=== PATIENT | male | born 1975 | race Caucasian/White ===

== ENCOUNTER 2021-08-20 08:21 | Emergency (ER) | payer OTHER, SELFPAY ==
[2021-08-20 08:40] VITALS: BP 134/98; PULSE 90; RESP 16; TEMP 36.9; O2SAT 93; BMI 25.7
[2021-08-20 08:49] VITALS: BP 134/98; PULSE 86; RESP 22; O2SAT 94
--- NOTE | 2021-08-20 08:49 | XR_ITS ---
WS: [id number] Exam: XR chest 1V portable [id number] Date/Time of Exam: 08/20/2021 8:49 AM Reason For Exam: dyspnea/cough Comparison 08/03/2021. Findings: The lungs are clear and fully expanded. Costophrenic angles are sharp. No infiltrates. Bronchovascula r relief appears normal. Cardiac silhouette is unremarkable. Bony elements are intact. XR/XR chest 1V portable [id number] IMPRESSION: Unremarkable chest radiograph.
--- NOTE | 2021-08-20 08:49 | ECG_ITS ---
[facility] Test Date: 2021-08-20 Pat Name: Rajeev Ramirez Department: Room: Gender: Male Masticator: : 1975 Requested By: Heladio Dallas Order Number: [id number] Rex MD: Octavio Layton M.D. Measurements Intervals [place] Rate: 78 P: 37 AR: 165 QRS: 35 QRSD: 89 T: 32 QT: 345 QTc: 394 Interpretive Statements SINUS RHYTHM INTERPRETATION BASED ON A DEFAULT AGE OF 40 YEARS No previous ECG available for comparison Electronically Signed On 08-21-2021 7:38:20 CORRECTIONAL OFFICER CAPTAIN by Octavio Layton M.D. [email or web address] [email or web address] Technical [id number]
--- NOTE | 2021-08-20 09:06 | W.ED.CHESTPA ---
HPI - Chest Pain General: Chief Complaint: Chest Pain Stated Complaint: JUST NOT FEELING WELL ACHEY ALL OVER Time Seen by Provider: 08/20/21 08:30 History of Present Illness: HPI narrative: 45-year-old male presents emergency room complaining of generally not feeling well headache flulike symptoms fatigue x1 month was diagnosed as having pneumonia a month ago completed antibiotic therapy but doesn't feel like his symptoms have resolved. He denies any high-grade fevers. Denies any anosmia or diarrhea. He is not currently on any medications denies any chest pain hematochezia melena hematemesis coffee-ground emesis vomiting or diarrhea. No history of diabetes or heart disease. No history of previous stroke. No history of chronic respiratory illness per the patient. MD complaint: chest discomfort Onset (ago): week(s) Timing of current episode: episodic Prior episodes: Yes Onset: during rest Pain radiation: none Severity: mild Quality: heaviness Relieving factors: nothing Exacerbating factors: nothing Associated symptoms: Reports dyspnea; Deny abdominal pain, diaphoresis, fever(s), leg edema, nausea, palpitations, sense of impending doom, syncope or vomiting Treatment prior to arrival: none Review of Systems Const: Denies: fever(s) or diaphoresis ENMT: Denies: throat pain, ear or mastoid pain, nasal discharge or nasal congestion Card: Denies: palpitations or syncope Resp: Reports: dyspnea GI: Denies: abdominal pain, nausea or vomiting : Denies: flank pain, dysuria, urinary frequency or urinary urgency Skin/Breast: Denies: rash or pruritus Physical Exam Const: COMMON NORMALS: no acute distress GENERAL APPEARANCE: cooperative and comfortable ORIENTATION/CONSCIOUSNESS: Yes awake, Yes oriented to person, Yes oriented to place and Yes oriented to time HENMT: COMMON NORMALS: normocephalic, atraumatic and hearing grossly normal bilaterally HEAD & SCALP: normocephalic and atraumatic Neck/C-Spine: COMMON NORMALS: no JVD Resp: COMMON NORMALS: normal respiratory effort, No retractions and No use of accessory muscles AUSCULTATION: wheezes Cardio: COMMON NORMALS: no JVD, regular rate, regular rhythm and No murmurs present (Cardio) RATE: regular rate RHYTHM: regular rhythm GI: COMMON NORMALS: Soft to palpation and No hepatosplenomegaly present AUSCULTATION: Yes normoactive bowel sounds PALPATION: Yes Soft to palpation, No Tenderness to palpation present (GI), No Guarding due to palpation present (GI) and Yes No hepatosplenomegaly present Extremity: COMMON NORMALS: normal to inspection, capillary refill normal, no clubbing, cyanosis or edema, no calf tenderness and no pedal edema Neuro: SENSORIUM/ORIENTATION: Yes oriented to person, Yes oriented to place and Yes oriented to time Skin: COMMON NORMALS: no rashes or lesions noted GENERAL SKIN EXAM: no rashes or lesions noted Course Vital Signs: Vital signs: Vital Signs Temperature 98.4 F 08/20/21 08:40 Pulse Rate 84 08/20/21 12:57 Respiratory Rate 21 H 08/20/21 12:57 Blood Pressure 134/98 08/20/21 12:57 Pulse Oximetry 97 08/20/21 12:57 MDM - Chest Pain MDM Narrative: Medical decision making narrative: Labs imaging and EKG reviewed as on the chart. Patient does not have any acute ST changes and he has no significant troponin change. Jessica go ahead and discharge him home we will set him up for an outpatient Lexiscan sestamibi stress test. Additionally start him on Symbicort albuterol to use as needed and have him take a baby aspirin daily return if he has recurrence. Lab Data: Labs: Lab Results 08/20/21 08/20/21 08/20/21 09:19 09:36 09:36 WBC 15.5 10^3/uL H 10 ^3/uL (4.0-10.0) RBC 5.70 10^6/uL H 10 ^6/uL (4.1-5.3) Hgb 16.8 g/dL H g/dL (11.7-16.6) Hct 49.8 % % (42.0-52.0) MCV 87.4 fl fl (80-94) MCH 29.5 pg pg (28.0-34.0) MCHC 33.7 g/dL g/dL (30.0-36.0) RDW 14.1 % % (12.1-15.1) Plt Count 308 10^3/cmm 10^3 /cmm (130-400) MPV 10.9 fL H fL (7.4-10.4) Neut % (Auto) 76.4 % % Lymph % (Auto) 17.2 % % [place] % (Auto) 5.0 % % Eos % (Auto) 0.6 % % Baso % (Auto) 0.5 % % Neut # (Auto) 11.83 10^3/uL H 1 0^3/uL (1.8-7.7) Lymph # (Auto) 2.7 10^3/uL 10^3/ uL (0.8-4.8) [place] # (Auto) 0.8 10^3/uL 10^3/ uL (0.2-0.9) Eos # (Auto) 0.1 10^3/uL 10^3/ uL (0.0-0.8) Baso # (Auto) 0.1 10^3/uL 10^3/ uL (0.0-0.1) Nucleated RBC % (a uto) 0 % % Nucleated RBCs # 0.0 /100WBC /100W BC Specimen Type Arterial Sample Site Radial, right ABG pH 7.48 H (7.35-7.45) ABG pCO2 32.3 mmHg L mmHg (35-45) ABG pO2 82.2 mmHg mmHg (80.0-100.0) ABG HCO3 24.0 mmol/L mmol/ L (22-26) ABG O2 Saturation 97.9 ABG Base Excess 1.3 mmol/L mmol/L (-2.0-2.0) David Test Pos A-a O2 Gradient 3.2 mmHg L mmHg (5-10) Hematocrit 51.7 % % (42-52) Hgb O2 Saturation 88.9 % L % (95-100) Carboxyhemoglobin 8.9 %THgb %THgb (0.4-20.1) Methemoglobin 0.3 % L % (0.4-1.5) Total Hemoglobin 16.9 g/dL g/dL (14-18) Sodium 139.0 mmol/L mmol /L 138 mmol/L mmol/L (131-143) (136-145) Potassium 3.8 mmol/L mmol/L 4.1 mmol/L mmol/L (3.5-5.0) (3.5-5.1) Glucose 88.0 mg/dL mg/dL 83 mg/dL mg/dL (70-115) (65-115) Ionized Calcium 1.2 mmol/L mmol/L (1.1-1.4) O2 Delivery Device Room air FiO2 21.0 % % Chemists ID [place]ro Chloride 104 mmol/L mmol/L (98-107) Carbon Dioxide 24 mmol/L mmol/L (22-29) Anion Gap 14.1 (5-19) BUN 10 mg/dL mg/dL (6-20) Creatinine 0.9 mg/dL mg/dL (0.7-1.2) GFR Calculation 90.8 mL/min mL/mi n (90-130) Calculated Osmolal ity 284 mOsm/kg L mOs m/kg (285-295) Calcium 8.9 mg/dL mg/dL (8.5-10.5) Total Bilirubin 0.4 mg/dL mg/dL (0.15-1.2) AST 15 U/L U/L (0-40) ALT 21 U/L U/L (0-41) Alkaline Phosphata se 124 IU/L IU/L (40-130) Creatine Kinase 65 U/L U/L (39-308) Troponin T Baselin e Troponin T 120 Min [place] Delta Troponin T Total Protein 6.9 g/dL g/dL (6.6-8.7) Albumin 4.3 g/dL g/dL (3.5-5.2) Globulin 2.6 g/dL g/dL (1.3-4.6) Urine Color Urine Appearance Urine pH Ur Specific Gravit y Urine Protein Urine Glucose (UA) Urine Ketones Urine Blood Urine Nitrate Urine Bilirubin Urine Urobilinogen Ur Leukocyte Perla ase 08/20/21 08/20/21 08/20/21 09:36 11:30 12:10 WBC RBC Hgb Hct MCV MCH MCHC RDW Plt Count MPV Neut % (Auto) Lymph % (Auto) [place] % (Auto) Eos % (Auto) Baso % (Auto) Neut # (Auto) Lymph # (Auto) [place] # (Auto) Eos # (Auto) Baso # (Auto) Nucleated RBC % (a uto) Nucleated RBCs # Specimen Type Sample Site ABG pH ABG pCO2 ABG pO2 ABG HCO3 ABG O2 Saturation ABG Base Excess David Test A-a O2 Gradient Hematocrit Hgb O2 Saturation Carboxyhemoglobin Methemoglobin Total Hemoglobin Sodium Potassium Glucose Ionized Calcium O2 Delivery Device FiO2 Chemists ID Chloride Carbon Dioxide Anion Gap BUN Creatinine GFR Calculation Calculated Osmolal ity Calcium Total Bilirubin AST ALT Alkaline Phosphata se Creatine Kinase Troponin T Baselin e 8 ng/L ng/L (0-15) Troponin T 120 Min [place] 6.00 ng/L ng/L (0-15) Delta Troponin T -2.00 ABS# L ABS# (0-10) Total Protein Albumin Globulin Urine Color Yellow (Yellow) Urine Appearance Clear (CLEAR) Urine pH 5 (5-7) Ur Specific Gravit y 1.025 (1.005-1.030) Urine Protein Neg (Negative) Urine Glucose (UA) Norm (Normal) Urine Ketones Negative (Negative) Urine Blood Neg (Negative) Urine Nitrate Negative (Negative) Urine Bilirubin Neg (Negative) Urine Urobilinogen Norm mg/dL mg/dL (Negative) Ur Leukocyte Perla ase Negative (Negative) Discharge Plan Discharge Patient Disposition: Home Clinical Impression: Atypical chest pain, COPD (chronic obstructive pulmonary disease) Condition: Stable Prescriptions: New aspirin 81 mg tablet,delayed release (DR/EC) 81 mg PO DAILY Qty: 30 RF: 3 Symbicort 80-4.5 mcg/actuation HFA aerosol inhaler 2 inh inhalation BID Qty: 10.2 RF: 1 albuterol sulfate 90 mcg/actuation HFA aerosol inhaler 2 inh INHALATION Q4H PRN (Reason: shortness of breath or wheezing) Qty: 18 RF: 0 Discharge Orders: Discharge ED (Routine); Ordered 08/20/21 Ordered By: Heladio Metz Referrals: Mali Castaneda DO [Primary Care Provider] - Discharge Diet: Usual diet Discharge Activity: Limit activity as instructed Patient Instructions: Opioid Safety Activity Restrictions/Additional Instructions: Case management will schedule stress test for you. Coding Level of Care Code ED Drapery Hand for [place] Fwd Exam Comprehensive
[2021-08-20 09:31] LABS: ABG PCO2 32.3 mmHg (35-45); ABG PH Result 7.48 (7.35-7.45); Alveolar-Arterial Oxygen Gradi 3.2 mmHg (5-10); Arterial Blood Gas Hematocrit 51.7 % (42-52); Base Excess ABG 1.3 mmol/L (-2.0-2.0); Blood Gas Allen Test Pos; Blood Gas Operator Identificat MONRO; Blood Gas Sample Site Radial, right; Blood Gas Sample Type Arterial; Carboxyhemoglobin 8.9 %THgb (0.4-20.1); HGB O2 Sat 88.9 % (95-100); Ionized Calcium Level - ABG 1.2 mmol/L (1.1-1.4); Methemoglobin 0.3 % (0.4-1.5); Oxygen Device ROOM AIR; Oxygen Saturation ABG 97.9; PO2 ABG 82.2 mmHg (80.0-100.0); Potassium Level - ABG 3.8 mmol/L (3.5-5.0); Total Hemoglobin 16.9 g/dL (14-18)
[2021-08-20 09:43] LABS: Basophils # 0.1 10^3/uL (0.0-0.1); Basophils % 0.5 %; Eosinophils # 0.1 10^3/uL (0.0-0.8); Eosinophils % 0.6 %; Hematocrit 49.8 % (42.0-52.0); Hemoglobin 16.8 g/dL (11.7-16.6); Lymphocytes # 2.7 10^3/uL (0.8-4.8); Lymphocytes % 17.2 %; Mean Corpuscular HGB Conc 33.7 g/dL (30.0-36.0); Mean Corpuscular Hemoglobin 29.5 pg (28.0-34.0); Mean Corpuscular Volume 87.4 fl (80-94); Mean Platelet Volume 10.9 fL (7.4-10.4); Monocytes # 0.8 10^3/uL (0.2-0.9); Neutrophils # 11.83 10^3/uL (1.8-7.7); Neutrophils % 76.4 %; Nucleated Red Blood Cells % 0 %; Platelet Count 308 10^3/cmm (130-400); Red Cell Distribution Width 14.1 % (12.1-15.1); White Blood Count 15.5 10^3/uL (4.0-10.0)
[2021-08-20 10:06] LABS: Alanine Aminotransferase 21 U/L (0-41); Albumin Level 4.3 g/dL (3.5-5.2); Alkaline Phosphatase 124 IU/L (40-130); Anion Gap 14.1 (5-19); Aspartate Amino Transferase 15 U/L (0-40); Blood Urea Nitrogen 10 mg/dL (6-20); Calcium 8.9 mg/dL (8.5-10.5); Carbon Dioxide 24 mmol/L (22-29); Chloride 104 mmol/L (98-107); Creatine Phosphokinase 65 U/L (39-308); Globulin 2.6 g/dL (1.3-4.6); Glomerular Filtration Rate 90.8 mL/min (90-130); Glucose 83 mg/dL (65-115); Osmolality Calculated 284 mOsm/kg (285-295); Potassium 4.1 mmol/L (3.5-5.1); Sodium 138 mmol/L (136-145); Total Bilirubin 0.4 mg/dL (0.15-1.2); Total Protein 6.9 g/dL (6.6-8.7)
[2021-08-20 10:13] LABS: Troponin(5th) Baseline 8 ng/L (0-15)
[2021-08-20 12:57] VITALS: BP 134/98; PULSE 84; RESP 21; O2SAT 97
[2021-08-20 13:25] LABS: Add Urine Microscopic? NO; Charge for UA Resulting for Rev
[2021-08-20 13:44] LABS: Urine Appearance Clear (CLEAR); Urine Color Yellow (Yellow)
[2021-08-20 13:45] LABS: Bilirubin Urine Neg (Negative); Blood Urine Neg (Negative); Glucose Urine UA Norm (Normal); Ketones Urine Negative (Negative); Leukocyte Esterase Urine Negative (Negative); Nitrate Urine Negative (Negative); Protein Urine Neg (Negative); Specific Gravity, Urine 1.025 (1.005-1.030); Urobilinogen Urine Norm (Negative); pH Urine 5 (5-7)
--- NOTE | 2021-08-26 07:04 | DCPLANNER ---
Addendum entered by Lindsey Avila 02/04/22 19:39: Patient has an outpatient stress test scheduled for Tuesday, February 08, 2022 at 11:30. Centralized scheduling will call patient with appointment information. Original Note: late entry - welfare case worker had message to schedule an outpatient stress test for patient. electronics engineering manager faxed signed order to centralized scheduling, who will call patient with appointment information.
== END 2021-08-20 12:58 | disposition home or self-care (01) ==
PROVIDERS: Emergency Provider Family Medicine; PCP Family Medicine
DX: R07.89 Other chest pain (principal); J44.9 Chronic obstructive pulmonary disease, unspecified; Z79.82 Long term (current) use of aspirin
CPT/HCPCS: 36600; 71045; 80051; 80053; 81003; 82330; 82550; 82805; 84484; 85025; 87040; 93005; 99283

== ENCOUNTER → 2022-04-04 12:05 | Outpatient (BNVA) | payer OTHER, SELFPAY | PROVIDERS: Visit Provider Family Medicine | DX: R11.2 Nausea with vomiting, unspecified (principal); K92.1 Melena; Z13.6 Encounter for screening for cardiovascular disorders; Z12.5 Encounter for screening for malignant neoplasm of prostate | CPT/HCPCS: 80053; 80061; 85025; G0103 ==

== ENCOUNTER 2022-06-17 09:56 | Outpatient (CLI) | payer OTHER, SELFPAY ==
--- NOTE | 2022-06-17 10:14 | FL_ITS ---
WS: [id number] FL upper GI w air* [id number] REASON FOR EXAM: HX OF HIATAL HERNIA FLUOROSCOPY TIME: 4min [id number] # OF SPOT FILMS: 133 FINDINGS: Patient was examined in the upright, prone RINALDI, supine, and LPO positions. Gastrointestinal tract was evaluated from the thoracic inlet to the ligament of Treitz. The thoracic esophagus is unremarkable. There is a large paraesophageal hernia. The remainder of the stomach demonstrates no significant abnormality. The pylorus duodenal bulb and duodenal sweep are unremarkable. FL/FL upper GI w air* [id number] IMPRESSION: Large paraesophageal hernia which fills most readily when the patient is supine or LPO.
== END 2022-06-17 09:57 | disposition home or self-care (01) ==
PROVIDERS: PCP Family Medicine; Visit Provider Surgery
DX: Z87.19 Personal history of other diseases of the digestive system (principal); K44.9 Diaphragmatic hernia without obstruction or gangrene
CPT/HCPCS: 74246

== ENCOUNTER 2022-06-24 07:29 | Day surgery (SDC) | payer OTHER, SELFPAY ==
[2022-06-22 14:11] VITALS: BMI 26.4
[2022-06-24 07:54] VITALS: BP 121/78; PULSE 72; RESP 18; TEMP 35.7; O2SAT 98
[2022-06-24] MEDS: sodium chloride 0.9% 1,000 ML 30 ML IV (08:05)
--- NOTE | 2022-06-24 09:02 | W.PM.OPSFHP ---
Same Day Surgery H&P Indication for Procedure/HPI DATE OF PROCEDURE: June 24, 2022 CHIEF COMPLAINT/INDICATIONFOR SURGICAL PROCEDURE: Blood in stool PREOP DIAGNOSIS: Nausea vomiting and bloody diarrhea PLANNED PROCEDURE: Operation Date: 06/24/22 09:00 Proposed Procedures p EGD(Not Applicable) - Brandon Guerra MD s Colonoscopy and egd [id number],K92.1,R19.4(Not Applicable) - Brandon Guerra MD 05/11/2022 This is a pleasant 46 years old gentleman referred to my practice with history of persistent nausea and change in bowel habits in the form of bloody diarrhea.? Patient had previous laparoscopic Selma fundoplication about 15 years ago at outside facility, he reports no GERD he still does have his gallbladder. Patient reports history of diarrhea, nonbloody in nature, has been going on for quite some time.? Patient denies history of recent travels, antibiotics, change in medications, questionable source of water, no history of sick contacts, no history of thyroid disorders. Patient is referred to my practice for further evaluation and potential management 06/24/2022 Patient comes today for diagnostic EGD and colonoscopy. An upper GI study was obtained and did show; Large paraesophageal hernia which fills most readily when the patient is supine or LPO. Patient reports to me today that he knew about his recurrence of the hernia and he had visited with his surgeon more than 10 years ago and was offered revision surgery. Likely this bit of information was not clear at the last visit. We will proceed with EGD and colonoscopy today. ROS All systems have been reviewed negative except as for the above or per problem list. Medications/Allergies* Allergies/Adverse Reactions Allergy/AdvReac Type Severity Reaction Status Date / Time Penicillins Allergy ADR-Vomitin Verified 06/24/22 09:03 g Current Medications: Generic Name Dose Route Start Last Admin Trade Name Freq PRN Reason Stop Dose Admin Sodium Chloride 1,000 mls @ 30 mls/hr 06/24/22 07:45 06/24/22 08:05 Sodium Chloride 0.9% IV 06/25/22 07:44 30 mls/hr .Q24H SIERRA Administration Pertinent History/Comorbid Conditions* Medical History (Updated 04/05/22 @ 06:57 by Liyah Hill DO) GERD (gastroesophageal reflux disease) Kidney stones Surgical History (Updated 04/04/22 @ 10:55 by Liyah Hill DO) History of lithotripsy History of Selma fundoplication Done at [facility] in [facility] Family History (Updated 04/04/22 @ 10:46 by Faye Pagan LPN) Hyperlipidemia Chronic kidney disease (CKD) Lung disease Cancer Hypertension Denies family history of Diabetes CAD (coronary artery disease) Clotting disorder Dementia Psychiatric illness Suicide Anesthesia complication Bleeding disorder Family history of premature coronary artery disease Stroke Social History Smoking and tobacco status: current every day smoker Pertinent Exam Findings alert, oriented x 3, regular rate & rhythm and procedure specific exam findings (Abdominal exam nontender nondistended soft) Recommendations Surgery/Procedure today (EGD and colonoscopy with possible biopsy) Coding Level of Care Code Acute System Developer Associate Manager for Dixon Little
--- NOTE | 2022-06-24 09:27 | ANES.PREANE2 ---
Pre-Anesthetic Assessment Height/Weight: Height 1.85 m Weight 90.718 kg Temp Pulse Resp BP Pulse Ox O2 Del Method 96.3 F L 72 18 121/78 98 06/24/22 07:54 06/24/22 07:54 06/24/22 07:54 06/24/22 07:54 06/24/22 07:54 06/24/22 07:54 Preop Diagnosis: Nausea vomiting and bloody diarrhea Operation Date: 06/24/22 09:00 Proposed Procedures p EGD(Not Applicable) - Brandon Guerra MD s Colonoscopy and egd [id number],K92.1,R19.4(Not Applicable) - Brandon Guerra MD Familial anesthetic complications: None Was Beta Compa taken within 24 hours: N/A Was Clonidine taken within 24 hours: N/A Last intake: Intake Last Liquid Date 06/23/22 Last Liquid Time 21:00 Last Solid Date 06/22/22 Last Solid Time 20:00 Social Tobacco and No alcohol Exam alert, oriented x 3, clear to auscultation bilaterally and regular rate & rhythm Airway Mallampati: Class II Dentition: chipped GI Gastroesophageal Reflux Disease s/p niessen Anesthetic Plan ASA status: 2 Anesthesia: MAC Risk of > 500 ml blood loss (7ml/kg in children): No Medications/Allergies Home Medications Medication Instructions Recorded Confirmed Last Taken Type pantoprazole 40 mg tablet,delayed See Rx Instructions .Route 05/05/22 06/22/22 06/11/22 Rx release .COMPLEX #30 tabs peg 3350-electrolytes 236 240 ml PO Q10M #4,000 mL 06/22/22 Unknown Rx gram-22.74 gram-6.74 gram-5.86 gram solution (Golytely) Allergies Allergy/AdvReac Type Severity Reaction Status Date / Time Penicillins Allergy ADR-Vomitin Verified 06/24/22 09:03 g Current Medications Generic Name Dose Route Start Last Admin Trade Name Freq PRN Reason Stop Dose Admin Sodium Chloride 1,000 mls @ 30 mls/hr 06/24/22 07:45 06/24/22 08:05 Sodium Chloride 0.9% IV 06/25/22 07:44 30 mls/hr .Q24H SIERRA Administration PFSH Anesthesia Medical History GERD (gastroesophageal reflux disease) Kidney stones Surgical History History of lithotripsy History of Selma fundoplication Done at [facility] in [facility] Family History Other Cancer Chronic kidney disease (CKD) Hyperlipidemia Hypertension Lung disease Denies family history of Diabetes CAD (coronary artery disease) Clotting disorder Dementia Psychiatric illness Suicide Anesthesia complication Bleeding disorder Family history of premature coronary artery disease Stroke Social History Smoking and tobacco status: current every day smoker Data Anesthesia Cardiac Studies: No Data to Display
[2022-06-24 10:12] VITALS: BP 117/70; PULSE 65; RESP 20; TEMP 36.1; O2SAT 97
[2022-06-24 10:24] VITALS: BP 122/71; PULSE 67; RESP 16; O2SAT 97
--- NOTE | 2022-06-24 13:30 | ANE.PACU2 ---
Inpatient post-anesthesia follow up: Airway intact: Yes Vital signs: Temperature 97 F Pulse Rate 67 Respiratory Rate 16 Blood Pressure 122/71 Pulse Oximetry 97 Oxygen Delivery Me thod Room Air Oxygen Flow Rate Fraction of Inspir ed Oxygen Hydration adequate: Yes Nausea and vomiting: No Pain level: 1 Mental status: Baseline
== END 2022-06-24 10:40 | disposition home or self-care (01) ==
PROVIDERS: PCP Family Medicine; Visit Provider Surgery
PROC: 0DJ08ZZ Inspection of Upper Intestinal Tract, Via Natural or Artificial Opening Endoscopic (ICD-10-PCS; CPT 43235; principal; 2022-06-24 09:00)
PROC: 0DJD8ZZ Inspection of Lower Intestinal Tract, Via Natural or Artificial Opening Endoscopic (ICD-10-PCS; CPT 45378; 2022-06-24 09:00)
DX: K92.1 Melena (principal); R19.4 Change in bowel habit; K21.00 Gastro-esophageal reflux disease with esophagitis, without bleeding; K44.9 Diaphragmatic hernia without obstruction or gangrene; K29.80 Duodenitis without bleeding; K29.50 Unspecified chronic gastritis without bleeding; K21.9 Gastro-esophageal reflux disease without esophagitis; F17.210 Nicotine dependence, cigarettes, uncomplicated
CPT/HCPCS: 43239; 45378; 88305; J2704; J7030

== ENCOUNTER 2022-07-14 09:24 | Outpatient (CLI) | payer OTHER, SELFPAY ==
--- NOTE | 2022-07-14 09:30 | US_ITS ---
WS: [id number] RIGHT UPPER QUADRANT ULTRASOUND HISTORY: ABDOMINAL PAIN COMPARISON: None available. Liver: 18.5 cm in length. Liver is slightly enlarged. Otherwise negative. No bile duct dilatation or mass. Portal Vein: Normal hepatopetal flow with monophasic waveform. Gallbladder: Gallbladder is contracted. Very small amount of lumen is evident. There is diffuse mild gallbladder wall thickening due to contraction. No stones or pericholecystic fluid. CBD: 0.5 cm Pancreas: Obscured pancreas. Right kidney: 11.6 cm in length. Normal size and echogenicity. No hydronephrosis or mass. Aorta and IVC: Unremarkable abdominal aorta and IVC. No ascites. US/US gall bladder [id number] IMPRESSION: 1. Contracted gallbladder. No stones identified. Patient has been nothing by rao begum. Consider chronic cholecystitis. 2. No bile duct dilatation. No evidence for acute cholecystitis.
== END 2022-07-14 09:25 | disposition home or self-care (01) ==
LOC: RAD 09:24
PROVIDERS: PCP Family Medicine; Visit Provider Surgery
DX: R10.9 Unspecified abdominal pain (principal); K82.0 Obstruction of gallbladder
CPT/HCPCS: 76705

== ENCOUNTER 2022-09-09 07:41 | Outpatient (CLI) | payer OTHER, SELFPAY ==
--- NOTE | 2022-09-09 08:00 | NM_ITS ---
WS: [id number] NUCLEAR MEDICINE HIDA SCAN CLINICAL INFORMATION: abdominal pain TECHNIQUE: Following intravenous administration of 7.9 mCi of technetium 99m mebrofenin, images of th e abdomen were obtained over the course of 60 minutes. Next, gallbladder ejection fraction was determ ined by obtaining preprandial and one-hour postprandial images of the gallbladder following oral jennifer stion of Ensure. COMPARISON: Ultrasound July 14, 2022 FINDINGS: Normal hepatic uptake at 5 minutes. Normal hepatic excretion. Gallbladder is visualized by 10 minutes . No evidence of acute cholecystitis. Normal common bile duct and small bowel activity. Gallbladder ejection fraction 81% within normal limits. No evidence of chronic cholecystitis. NM/NM hepatobiliary w phar* [id number] IMPRESSION: 1. No evidence of acute or chronic cholecystitis. 2. Normal gallbladder ejection fraction 81%.
== END 2022-09-09 07:42 | disposition home or self-care (01) ==
PROVIDERS: PCP Family Medicine; Visit Provider Surgery
DX: R10.9 Unspecified abdominal pain (principal)
CPT/HCPCS: 78227; A9537

== ENCOUNTER 2023-09-04 09:19 | Inpatient (IN) | payer OTHER, SELFPAY ==
[2023-09-04 09:22] VITALS: BP 164/116; PULSE 107; TEMP 36.6; O2SAT 97; BMI 26.4
--- NOTE | 2023-09-04 09:33 | W.ED.PSYCHS ---
HPI - Psych General: Chief Complaint: Psychiatric Symptoms Stated Complaint: 96 hr hold Time Seen by Provider: 09/04/23 09:22 Source: patient Mode of arrival: other (Law enforcement) History of Present Illness: 47-year-old male was admitted to the [facility] residential and made suicidal threats he was discharged this morning and brought here by Information Systems Security Manager's deputy because of the suicidal threats. while at the residential he was under suicide watch did not think to harm himself. At the time of discharge he denies suicidal threats. Patient denies any history of mental health that she has not previously hospitalized for suicidal ideation. He is very anxious and depressed his of 30 years is recently filed for divorce and a no contact order he supposedly had violated the no contact order and been in contact at her home and then he was arrested. Also upset because he had to [facility] children has not seen in several months. He denies any suicidal ideation at this time. Relieving factors: none Exacerbating factors: none Context: significant life stressor Associated symptoms: Deny auditory hallucinations, visual hallucinations, delusions, depression, homicidal ideation, suicidal ideation or racing thoughts Review of Systems Const: Denies: fever(s) or chills Card: Denies: chest pain Resp: Denies: dyspnea GI: Denies: abdominal pain : Denies: dysuria, urinary frequency or urinary urgency Musc: Denies: neck pain or back pain Skin/Breast: Denies: rash Psych: Denies: depression, visual hallucinations, auditory hallucinations, suicidal ideation or homicidal ideation [facility] ED PFSH: Medical History GERD (gastroesophageal reflux disease) Kidney stones Surgical History History of lithotripsy History of Selma fundoplication Done at [facility] in [facility] Family History Other Cancer Chronic kidney disease (CKD) Hyperlipidemia Hypertension Lung disease Denies family history of Diabetes CAD (coronary artery disease) Clotting disorder Dementia Psychiatric illness Suicide Anesthesia complication Bleeding disorder Family history of premature coronary artery disease Stroke Social History Smoking and tobacco/nicotine status: current every day tobacco/nicotine user Physical Exam Const: COMMON NORMALS: no acute distress GENERAL APPEARANCE: cooperative, comfortable and anxious ORIENTATION/CONSCIOUSNESS: Yes awake, Yes oriented to person, Yes oriented to place and Yes oriented to time HENMT: COMMON NORMALS: normocephalic, atraumatic and hearing grossly normal bilaterally HEAD & SCALP: normocephalic and atraumatic Resp: COMMON NORMALS: normal respiratory effort, No retractions and No use of accessory muscles Extremity: COMMON NORMALS: normal to inspection, capillary refill normal, no clubbing, cyanosis or edema, no calf tenderness and no pedal edema Neuro: SENSORIUM/ORIENTATION: Yes oriented to person, Yes oriented to place and Yes oriented to time Psych: THOUGHT CONTENT: No delusions Skin: COMMON NORMALS: no rashes or lesions noted GENERAL SKIN EXAM: no rashes or lesions noted Course Vital Signs: Vital signs: Vital Signs Temperature 97.8 F 09/04/23 09:22 Pulse Rate 107 H 09/04/23 09:22 Blood Pressure 164/116 09/04/23 09:22 Pulse Oximetry 97 09/04/23 09:22 Oxygen Delivery Me thod Room Air 09/04/23 09:22 MDM - Psych Medical Decision Making Reviewed chart. Discussed with patient. Initially reactive integuments suicidal comments to the residential staff last night when I had talked to Dr. Che and he suggested we admit the patient now patient is retracting that he made any such comments did fill out some paperwork from the residential as well outlining that he had made suicidal comments. Will admit under 96-hour hold. Medical Records I reviewed the patient's medical records. Lab Data I reviewed the patient's lab results. No radiology studies performed this visit Discharge Plan Discharge Patient Disposition: Admitted As Inpatient Clinical Impression: Suicidal ideation, Depression Condition: Stable Prescriptions: No Action pantoprazole 40 mg tablet,delayed release (DR/EC) See Rx Instructions .ROUTE .COMPLEX Qty: 30 3RF Dose Instruction: TAKE 1 TABLET BY MOUTH EVERY DAY Rx Instructions: TAKE 1 TABLET BY MOUTH EVERY DAY peg 3350-electrolytes [Golytely] 236-22.74-6.74 -5.86 gram recon soln 240 ml PO Q10M Qty: 4000 0RF Rx Instructions: until fecal effluent is clear Referrals: Liyah Hill DO [Primary Care Provider] - Coding Level of Care Code ED Electronic Controls Repairer Supervisor for Dixon Little
--- NOTE | 2023-09-04 11:34 | PC.NURSE ---
96 hour hold rights read and reviewed with patient. Patient very tearful and stated he did not want to stay here. Copy of rights left at the bedside. Patient verbalized understandings.
[2023-09-04 11:53] LABS: Basophils # 0.1 10^3/uL (0.0-0.1); Basophils % 0.9 %; Eosinophils # 0.1 10^3/uL (0.0-0.8); Eosinophils % 1.1 %; Hematocrit 47.6 % (37-53); Lymphocytes # 1.9 10^3/uL (0.8-4.8); Lymphocytes % 28.8 %; Mean Corpuscular HGB Conc 33.4 g/dL (30-55); Mean Corpuscular Hemoglobin 30.2 pg (27-33); Mean Corpuscular Volume 90.3 fl (82-101); Monocytes # 0.5 10^3/uL (0.2-0.9); Monocytes % 8.2 %; Neutrophils # 3.91 10^3/uL (1.8-7.7); Neutrophils % 60.8 %; Nucleated Red Blood Cells % 0 %; Platelet Count 288 10^3/cmm (157-399); Red Blood Count 5.27 10^6/uL (3.85-5.65); Red Cell Distribution Width 13.8 % (12.1-15.1); White Blood Count 6.43 10^3/uL (3.29-11.43)
[2023-09-04 12:12] LABS: Alanine Aminotransferase 11 U/L (0-41); Albumin Level 4.1 g/dL (3.5-5.2); Alkaline Phosphatase 115 U/L (40-130); Anion Gap 13.4 (5-19); Aspartate Amino Transferase 15 U/L (0-40); Blood Urea Nitrogen 11 mg/dL (6-20); Calcium 9.4 mg/dL (8.5-10.5); Carbon Dioxide 26 mmol/L (22-29); Chloride 102 mmol/L (98-107); Globulin 2.9 g/dL (1.3-4.6); Glomerular Filtration Rate 79.8 mL/min (90-130); Glucose 105 mg/dL (65-115); Osmolality Calculated 284 mOsm/kg (285-295); Potassium 4.4 mmol/L (3.5-5.1); Salicylate 1.7 mg/dL (3-10); Sodium 137 mmol/L (136-145); Total Bilirubin 0.4 mg/dL (0.15-1.2)
[2023-09-04 12:14] LABS: Acetaminophen < 5.0 ug/mL (10-30)
[2023-09-04 14:00] VITALS: BP 168/95; PULSE 68; RESP 16; TEMP 36.9; O2SAT 98
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
[2023-09-04 19:40] VITALS: BP 148/96; PULSE 88; RESP 18; O2SAT 95
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
[2023-09-05] MEDS: nicotine 2 mg Gum BUCCAL ×2 (08:25→18:26)
[2023-09-05] MEDS: nicotine 4 mg lozenge MUCOUS MEM (13:53)
[2023-09-05 14:00] VITALS: BP 162/100; PULSE 112; RESP 16; TEMP 36.6; O2SAT 98
[2023-09-05 19:57] VITALS: BP 162/104; PULSE 110; RESP 20; O2SAT 97
[2023-09-05] MEDS: trazodone 50 mg Tablet PO (20:50)
[2023-09-06] MEDS: nicotine 2 mg Gum BUCCAL ×2 (11:37→19:26)
[2023-09-06 14:00] VITALS: BP 152/94; PULSE 85; RESP 18; TEMP 36.7; O2SAT 99
--- NOTE | 2023-09-06 14:46 | W.PM.NPUPNS ---
Subjective NPU Subjective: Patient presented today reporting that he is feeling better. He continues to lament about his decision making and acknowledges more readily today that he should have made different decisions and that he has to stay away from her. He was able to identify some of the issues that he has that he needs to focus on and face. We discussed the importance of him working on himself and letting the outcomes be what they are. He continues to deny any need for any medication and we discussed believing he would benefit from referral to outpatient resources to have someone to speak to and to work on his thinking. We discussed the possibility of discharge in the next 48 hours. Mental Status Exam MSE Comments: This is an overweight, white male, in hospital scrubs, with limited grooming and eye contact. No abnormal movements. Cooperative with exam in mild to moderate distress. Speech was normal rate and volume. Mood described as a little better; affect congruent and less tearful. Thought process, organized. Thought content: patient denied any suicidal or homicidal ideation, there were no delusions reported or noted, patient denied any auditory or visual hallucinations. Attention, concentration, and memory appeared intact, but none were formally tested. Alert and oriented times three. Insight and judgment appear limited. Impulse control is impaired. Vitals/I&O/Wt Last Vital Signs Temp 98 F 09/05/23 14:00 Pulse 110 H 09/05/23 19:57 Resp 20 H 09/05/23 19:57 BP 162/104 09/05/23 19:57 Pulse Ox 97 09/05/23 19:57 O2 Del Method Room Air 09/05/23 19:57 Data NPU 09/04/23 11:40 09/04/23 11:40 A&P Assessment and plan (1) Suicidal ideation: (2) Depression: (3) Nausea and vomiting: Qualifiers: Vomiting type: bilious vomiting Qualified Code(s): R11.14 - Bilious vomiting (4) Gastritis and duodenitis: (5) Hematochezia: Plan This is a 47-year-old, white male, who presents after a recent group home stay because of a PFA by his being broken, then after being released from group home being brought to the hospital by police, secondary to suicidal statements, endorsing he has been having difficulty coping with a separation from his and worrying about his children, and making some bad choices, but denying suicidality. 1.? Encourage individual, group, and milieu therapy. 2.? Continue q-15-minute checks for safety. 3. Consider initiating medication. 4. Evaluate for safety per 96-hour hold. Involuntary Hold Information 96 Hour Hold: 96 Hour Involuntary Admission: Yes 96 Hour Hold Ending Date: 09/11/23 96 Hour Hold Ending Time: 00:01 Attestations NPU Medical Necessity Statement*: Inpatient hospitalization is medically necessary and the clinically appropriate intervention, at this time. We will monitor medications and make changes as indicated. Likely length of stay is 1-3 days. Coding Level of Care Code Acute Code for [facility] Fwd Diagnoses Suicidal ideation R45.851 Depression F32.A Bilious vomiting with nausea R11.14 Vomiting type: bilious vomiting Gastritis and duodenitis K29.90 Hematochezia K92.1
[2023-09-06 20:27] VITALS: BP 149/98; PULSE 129; RESP 20; TEMP 36.9; O2SAT 95
[2023-09-06] MEDS: trazodone 50 mg Tablet PO (20:40)
[2023-09-07] MEDS: nicotine 2 mg Gum BUCCAL (10:41)
[2023-09-07 11:47] VITALS: BP 149/98; PULSE 129; RESP 20; TEMP 36.9; O2SAT 95
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
== END 2023-09-07 12:30 | disposition home or self-care (01) | DRG 881 ==
LOC: ER 10:49 → NP 12:48
PROVIDERS: Admitting Provider Psychiatry & Neurology Psychiatry; Emergency Provider Family Medicine; PCP Family Medicine; Visit Provider Psychiatry & Neurology Psychiatry
DX: F32.A Depression, unspecified (principal); R45.851 Suicidal ideations; K92.1 Melena; F17.210 Nicotine dependence, cigarettes, uncomplicated; F12.10 Cannabis abuse, uncomplicated; K44.9 Diaphragmatic hernia without obstruction or gangrene; K21.9 Gastro-esophageal reflux disease without esophagitis; Z81.8 Family history of other mental and behavioral disorders; K29.90 Gastroduodenitis, unspecified, without bleeding
CPT/HCPCS: 36415; 80053; 80307; 85025; 97150; 97165; 99285

== ENCOUNTER 2024-05-20 15:33 | Emergency (ER) | payer MEDICAID, SELFPAY ==
[2024-05-20 15:38] VITALS: BP 137/91; PULSE 87; TEMP 36.4; O2SAT 97; BMI 26.4
--- NOTE | 2024-05-20 16:00 | USR_ITS ---
PROCEDURE INFORMATION: Exam: US Scrotum Exam date and time: 05/20/2024 4:07 PM Age: 48 years old Clinical indication: Scrotum pain; Additional info: Testicle pain TECHNIQUE: Imaging protocol: Real-time ultrasound of the scrotum and contents with color Doppler and image documentation. COMPARISON: US gall bladder [id number] 07/14/2022 9:34 AM FINDINGS: Right testicle: Normal. No mass. Normal color Doppler and arterial waveforms. No torsion. The testicle measures 5.0 x 2.3 x 3.2 cm (20 mL). Left testicle: Normal. No mass. Normal color Doppler and arterial waveforms. No torsion. The testicle measures 5.7 x 2.6 x 3.4 cm (26.5 mL). Epididymides: Normal. Scrotum/soft tissues: Normal. Small right hydroceles. US/US scrotum [id number] IMPRESSION: 1. Normal sonographic appearance of the testes. 2. Small right hydrocele.
[2024-05-20 17:32] LABS: Basophils # 0.1 10^3/uL (0.0-0.1); Basophils % 0.6 %; Eosinophils # 0.1 10^3/uL (0.0-0.8); Eosinophils % 0.5 %; Hematocrit 51.3 % (37-53); Lymphocytes # 1.8 10^3/uL (0.8-4.8); Mean Corpuscular HGB Conc 34.1 g/dL (30-55); Mean Corpuscular Hemoglobin 30.4 pg (27-33); Mean Corpuscular Volume 89.2 fl (82-101); Mean Platelet Volume 10.6 fL (7.4-10.4); Monocytes # 0.6 10^3/uL (0.2-0.9); Monocytes % 5.2 %; Neutrophils # 8.03 10^3/uL (1.8-7.7); Neutrophils % 76.2 %; Nucleated Red Blood Cells % 0 %; Platelet Count 308 10^3/cmm (157-399); Red Blood Count 5.75 10^6/uL (3.85-5.65); Red Cell Distribution Width 14.5 % (12.1-15.1); White Blood Count 10.53 10^3/uL (3.29-11.43)
[2024-05-20 17:36] VITALS: PULSE 85; RESP 16; O2SAT 97
[2024-05-20 17:45] LABS: Charge for UA Resulting for Rev
--- NOTE | 2024-05-20 17:46 | W.ED.MALEGU ---
HPI - Male Genitourinary General: Chief complaint: Urogenital-Male Stated complaint: lump on testicle Time Seen by Provider: 05/20/24 17:03 Source: patient Mode of arrival: ambulatory Limitations: no limitations History of Present Illness: Patient is a 48-year-old male presents to the emergency department complaining of right testicular pain and swelling for the past few days. States he feels a lump on his right testicle that seems to be hard and he is concerned that it is cancerous. Does not have a primary care provider. Does have a history of anxiety though, does not take anything for this or any other medications for that matter. He also states for the past few days he has been feeling nauseous and has vomited. Also reporting a subjective fever, chills, and bodyaches. Denies any sick contacts. Denies any hematuria, dysuria, unprotected sex, trauma, or other symptoms at this time. MD Complaint: testicle pain and testicle swelling Onset (ago): day(s) Duration: constant Location: right testicle Exacerbating factors: palpation Associated symptoms: Reports nausea and vomiting; Deny dysuria Related Data Home Medications Medication Instructions Recorded Confirmed No Known Home Medications 09/05/23 09/05/23 Allergies Allergy/AdvReac Type Severity Reaction Status Date / Time Penicillins Allergy ADR-Vomitin Verified 05/20/24 15:42 g Review of Systems General: Reports: 10 or more systems reviewed and unremarkable except in HPI and below Const: Reports: fever(s), chills and body aches; Denies: change in appetite, change in weight or diaphoresis ENMT: Denies: throat pain or hoarseness Card: Denies: chest pain, palpitations or lightheadedness Resp: Denies: dyspnea, productive cough or wheezing GI: Reports: nausea and vomiting; Denies: abdominal pain, diarrhea, constipation, bloating, change in stool character or hematochezia : Reports: testicular pain and scrotal swelling; Denies: flank pain, difficulty urinating, dysuria, urinary frequency or urinary urgency Musc: Denies: neck pain or back pain Skin/Breast: Denies: rash or new lesions Neuro: Denies: headache(s) or dizziness [facility] PFSH: Medical History Psychiatric care GERD (gastroesophageal reflux disease) Kidney stones Surgical History History of lithotripsy History of [place] fundoplication Done at [facility] in [facility] Family History Other Cancer Chronic kidney disease (CKD) Hyperlipidemia Hypertension Lung disease Denies family history of Diabetes CAD (coronary artery disease) Clotting disorder Dementia Psychiatric illness Suicide Anesthesia complication Bleeding disorder Family history of premature coronary artery disease Stroke Social History Smoking and tobacco/nicotine status: current every day tobacco/nicotine user Physical Exam Const: COMMON NORMALS: no acute distress, average body habitus, no limitations, healthy appearing and well nourished GENERAL APPEARANCE: cooperative, comfortable and anxious ORIENTATION/CONSCIOUSNESS: Yes awake HENMT: COMMON NORMALS: normocephalic, atraumatic, hearing grossly normal bilaterally, external ears normal, Normal external nose present, Normal nasal mucous membranes and turbinates present and moist oral mucous membranes HEAD & SCALP: normocephalic and atraumatic NOSE: Normal external nose present and Normal nasal mucous membranes and turbinates present EXTERNAL EAR: Yes external ears normal Eye: COMMON NORMALS: Equal, round and reactive pupils present, EOMs intact bilaterally, conjunctivae normal and normal visual mccoy by confrontation CONJUNCTIVA: Yes conjunctivae normal PUPIL: Yes Equal, round and reactive pupils present Neck/C-Spine: COMMON NORMALS: full ROM, supple and no JVD Resp: COMMON NORMALS: normal respiratory effort, No retractions, No use of accessory muscles and clear to auscultation bilaterally AUSCULTATION: clear to auscultation bilaterally, no crackles, no rales, no rhonchi and no wheezes Cardio: COMMON NORMALS: no JVD, regular rate, regular rhythm, S1 normal heart sound present, S2 normal heart sound present, No gallops present (Cardio), No clicks present (Cardio), No murmurs present (Cardio), No rub (Cardio) and Peripheral pulses 2+ throughout RATE: regular rate RHYTHM: regular rhythm HEART SOUNDS: S1 normal heart sound present and S2 normal heart sound present PERIPHERAL PULSES: Peripheral pulses 2+ throughout GI: COMMON NORMALS: Normal to inspection, nondistended, normoactive bowel sounds present, Soft to palpation, non-tender, No hepatosplenomegaly present and no masses AUSCULTATION: Yes normoactive bowel sounds PALPATION: Yes Soft to palpation, No Guarding due to palpation present (GI), No Rigid due to palpation and Yes No hepatosplenomegaly present RECTAL EXAM: Yes deferred : SCROTUM: Yes testes descended bilaterally TESTES: Yes testicular lie normal, No testicular swelling, Yes testicular tenderness Testicular tenderness laterality: right, Yes testicular mass Testicular mass laterality: right soft and tender and Yes epididymides normal Extremity: COMMON NORMALS: normal to inspection and full ROM Psych: COMMON NORMALS: mental status grossly normal, cooperative and speech normal SPEECH: Yes normal speech Skin: COMMON NORMALS: no rashes or lesions noted GENERAL SKIN EXAM: no rashes or lesions noted Course Vital Signs: Vital signs: Vital Signs Temperature 97.5 F L 05/20/24 15:38 Pulse Rate 66 05/20/24 18:25 Respiratory Rate 16 05/20/24 18:00 Blood Pressure 127/86 05/20/24 18:25 Pulse Oximetry 98 05/20/24 18:25 Oxygen Delivery Me thod Room Air 05/20/24 17:36 [facility] - Male Medical Decision Making Patient presented with multiple complaints, specifically he had noted a bump on his right testicle over the past week or so. Also had complaints of some potential upper respiratory symptoms despite having no sick contact exposure. Ultrasound of his scrotum did show signs of a hydrocele, this was correlated with the physical exam that did not find any signs of testicular torsion which was also confirmed on sonography. His lab work was unremarkable. His urine did appear dark and likely this is due to some dehydration, and patient was noticeably anxious at time of physical examination and history, and did inform her to follow-up with primary care for which she states he is going to establish in [place] soon. Reasons to return discussed. Lab Data 05/20/24 17:25 05/20/24 17:25 Radiology Impressions Scrotum Ultrasound 05/20/24 16:00 IMPRESSION: 1. Normal sonographic appearance of the testes. 2. Small right hydrocele. Laboratory Results WBC 10.53 10^3/uL (3.29-11.43) 05/20/24 17:25 RBC 5.75 10^6/uL (3.85-5.65) H 05/20/24 17:25 Hgb 17.50 g/dL (11.27-16.99) H 05/20/24 17:25 Hct 51.3 % (37-53) 05/20/24 17:25 MCV 89.2 fl (82-101) 05/20/24 17:25 MCH 30.4 pg (27-33) 05/20/24 17:25 MCHC 34.1 g/dL (30-55) 05/20/24 17:25 RDW 14.5 % (12.1-15.1) 05/20/24 17:25 Plt Count 308 10^3/cmm (157-399) 05/20/24 17:25 MPV 10.6 fL (7.4-10.4) H 05/20/24 17:25 Neut % (Auto) 76.2 % 05/20/24 17:25 Lymph % (Auto) 17.0 % 05/20/24 17:25 [place] % (Auto) 5.2 % 05/20/24 17:25 Eos % (Auto) 0.5 % 05/20/24 17:25 Baso % (Auto) 0.6 % 05/20/24 17:25 Neut # (Auto) 8.03 10^3/uL (1.8-7.7) H 05/20/24 17:25 Lymph # (Auto) 1.8 10^3/uL (0.8-4.8) 05/20/24 17:25 [place] # (Auto) 0.6 10^3/uL (0.2-0.9) 05/20/24 17:25 Eos # (Auto) 0.1 10^3/uL (0.0-0.8) 05/20/24 17:25 Baso # (Auto) 0.1 10^3/uL (0.0-0.1) 05/20/24 17:25 Nucleated RBC % (auto) 0 % 05/20/24 17: Nucleated RBCs # 0.0 /100WBC 05/20/24 17:25 Sodium 140 mmol/L (136-145) 05/20/24 17:25 Potassium 4.4 mmol/L (3.5-5.1) 05/20/24 17:25 Chloride 101 mmol/L (98-107) 05/20/24 17:25 Carbon Dioxide 29 mmol/L (22-29) 05/20/24 17:25 Anion Gap 14.4 (5-19) 05/20/24 17:25 BUN 13 mg/dL (6-20) 05/20/24 17:25 Creatinine 1.1 mg/dL (0.7-1.2) 05/20/24 17:25 GFR Calculation 71.1 mL/min (90-130) L 05/20/24 17:25 Glucose 145 mg/dL (65-115) H 05/20/24 17:25 Calculated Osmolality 293 mOsm/kg (285-295) 05/20/24 17:25 Calcium 9.6 mg/dL (8.5-10.5) 05/20/24 17:25 Total Bilirubin 0.3 mg/dL (0.15-1.2) 05/20/24 17:25 AST 11 U/L (0-40) 05/20/24 17:25 ALT 9 U/L (0-41) 05/20/24 17:25 Alkaline Phosphatase 140 U/L (40-130) H 05/20/24 17:25 Total Protein 7.3 g/dL (6.6-8.7) 05/20/24 17:25 Albumin 4.2 g/dL (3.5-5.2) 05/20/24 17:25 Globulin 3.1 g/dL (1.3-4.6) 05/20/24 17:25 Lipase 26 U/L (13-60) 05/20/24 17:25 Urine Color Dark yellow (Yellow) A 05/20/24 17:30 Urine Appearance Clear (CLEAR) 05/20/24 17:30 Urine pH 5.5 (5-7) 05/20/24 17:30 Ur Specific [place] 1.026 (1.005-1.030) 05/20/24 17:30 Urine Protein Negative (Negative) 05/20/24 17:30 Urine Glucose (UA) Negative (Normal) 05/20/24 17:30 Urine Ketones Trace (Negative) 05/20/24 17:30 Urine Blood Negative (Negative) 05/20/24 17:30 Urine Nitrate Negative (Negative) 05/20/24 17:30 Urine Bilirubin Negative (Negative) 05/20/24 17:30 Urine Urobilinogen 1.0 mg/dL (Negative) 05/20/24 17:30 Ur Leukocyte Esterase Negative (Negative) 05/20/24 17:30 Urine RBC 0-2 /hpf (0-2) 05/20/24 17:30 Urine WBC 0-5 /hpf (0-5) 05/20/24 17:30 Ur Squamous Epith Cells 0-5 /hpf (0-5) 05/20/24 17:30 Amorphous Sediment Not Reportable 05/20/24 17:30 Urine Bacteria None seen /hpf (NONE) 05/20/24 17:30 Hyaline Casts 2.05 /lpf 05/20/24 17:30 SARS-CoV-2 Ag (Rapid) negative (Negative) 05/20/24 17:34 All radiology interpretation(s) finalized by discharge Discharge Plan Discharge Patient Disposition: Home Clinical Impression: Hydrocele, right, Dehydration Condition: Stable Prescriptions: No Action No Known Home Medications Discharge Orders: Discharge ED (Routine); Ordered 05/20/24 Ordered By: Ventura Fuentes Referrals: Liyah Hill DO [Primary Care Provider] - Discharge Diet: Usual diet Discharge Activity: Increase activity as tolerated Patient Instructions: Hydrocele, Dehydration (ED) Activity Restrictions/Additional Instructions: Plenty of fluids. Follow-up with primary care in [place] as already discussed. Return with any new or worsening symptoms. Coding Level of Care Code ED Guest Services Ambassador for [facility]
[2024-05-20 17:51] LABS: Alanine Aminotransferase 9 U/L (0-41); Albumin Level 4.2 g/dL (3.5-5.2); Alkaline Phosphatase 140 U/L (40-130); Anion Gap 14.4 (5-19); Aspartate Amino Transferase 11 U/L (0-40); Blood Urea Nitrogen 13 mg/dL (6-20); Calcium 9.6 mg/dL (8.5-10.5); Carbon Dioxide 29 mmol/L (22-29); Chloride 101 mmol/L (98-107); Creatinine Clr Calc Pharmacy 96.7762; Globulin 3.1 g/dL (1.3-4.6); Glomerular Filtration Rate 71.1 mL/min (90-130); Glucose 145 mg/dL (65-115); Lipase 26 U/L (13-60); Osmolality Calculated 293 mOsm/kg (285-295); Potassium 4.4 mmol/L (3.5-5.1); Sodium 140 mmol/L (136-145); Total Bilirubin 0.3 mg/dL (0.15-1.2); Total Protein 7.3 g/dL (6.6-8.7)
[2024-05-20 17:52] LABS: Bilirubin Urine Negative (Negative); Blood Urine Negative (Negative); Glucose Urine UA Negative (Normal); Ketones Urine Trace (Negative); Leukocyte Esterase Urine Negative (Negative); Nitrate Urine Negative (Negative); Protein Urine Negative (Negative); Specific Gravity, Urine 1.026 (1.005-1.030); Urine Appearance Clear (CLEAR); Urine Color Dark Yellow (Yellow); pH Urine 5.5 (5-7)
[2024-05-20 17:56] LABS: Bacteria Urine None Seen /hpf; Hyaline Casts Urine 2.05 /lpf; RBC Urine 0-2 /hpf (0-2); Squamous Epithelial Cell Urine 0-5 /hpf (0-5); WBC Urine 0-5 /hpf (0-5)
[2024-05-20 18:00] VITALS: BP 127/86; PULSE 83; RESP 16; O2SAT 94
[2024-05-20 18:05] LABS: SARS Covid-2 Antigen negative (Negative)
[2024-05-20 18:25] VITALS: BP 127/86; PULSE 66; O2SAT 98
== END 2024-05-20 18:26 | disposition home or self-care (01) ==
PROVIDERS: Emergency Medicine; Emergency Provider Physician Assistant; PCP Family Medicine
DX: N43.3 Hydrocele, unspecified (principal); E86.0 Dehydration; Z11.52 Encounter for screening for COVID-19; Z72.0 Tobacco use
CPT/HCPCS: 36415; 76870; 80053; 81003; 81015; 83690; 85025; 87426; 99284